=== PATIENT | male | born 1985 | race Two or more races ===

== ENCOUNTER 2024-08-21 16:58 | Inpatient (IN) | payer BC ==
[~2024-08-21] VITALS: Ht 167.6 cm; Wt 101.2 kg
[2024-08-21] MEDS ORDERED: VALB40CA2 PO (17:19)
[2024-08-21] MEDS ORDERED: FLUV50 PO (17:19)
[2024-08-21] MEDS ORDERED: FAMO10TA39 PO (17:19)
[2024-08-21] MEDS ORDERED: DIVA-112 PO (17:19)
[2024-08-21] MEDS ORDERED: OXCA150T28 PO (17:19)
[2024-08-21] MEDS ORDERED: MULT-413 PO (17:19)
[2024-08-21] MEDS ORDERED: LORA0.5T83 PO (17:19)
[2024-08-21] MEDS ORDERED: CLOZ200T24 PO (17:19)
[2024-08-21] MEDS ORDERED: MIRT-89 PO (17:19)
[2024-08-21] MEDS ORDERED: LINA290C PO (17:19)
[2024-08-21 18:12] LABS: PH,URINE DRUG SCREEN 7.0 (5.0-8.0)
[2024-08-21 18:20] LABS: ALCOHOL, URINE DRUG SCREEN NEGATIVE (NEGATIVE); AMPHET/METH SCREEN,URINE NEGATIVE (NEGATIVE); BARBITURATE SCREEN, URINE NEGATIVE (NEGATIVE); CANNABINOID SCREEN,URINE NEGATIVE (NEGATIVE); COCAINE SCREEN,URINE NEGATIVE (NEGATIVE); METHADONE SCREEN, URINE NEGATIVE (NEGATIVE)
[2024-08-21 18:32] LABS: COVID AG,FIA SOURCE NASAL SWAB
[2024-08-21 18:49] LABS: SARS-COV2 (COVID) ANTIGEN,FIA Negative (Negative)
[2024-08-21 21:15] LABS: PLATELET COUNT (AUTO) 261 K/uL (150-450); RED BLOOD CELL COUNT(AUTO) 4.26 MIL/uL (4.50-5.90); RED CELL DISTRIBUTION WIDTH 14.4 % (11.5-14.5); WHITE BLOOD COUNT (AUTO) 4.3 K/uL (4.5-11.0)
[2024-08-21 21:23] LABS: CALCIUM, TOTAL 9.0 mg/dL (8.8-10.5); CREATININE 0.50 mg/dL (0.60-1.30); GLOMERULAR FILTR. RATE CALC > 60 mL/min (>60); GLUCOSE,RANDOM 91 mg/dL (70-110); SODIUM SERUM 139 mmol/L (136-145); UREA NITROGEN, BLOOD 7 mg/dL (7-18)
[2024-08-21] MEDS ORDERED: PROMETHAZINE HCL 25 MG TABLET PO PRN (23:15)
[2024-08-21] MEDS ORDERED: MAGNESIUM HYDROXIDE SUSPENSION 30 ML UDCUP PO PRN (23:15)
[2024-08-21] MEDS ORDERED: MAG HYDROX/ALUMINUM HYD/SIMETH ES 30 ML SUSPENSION UDCUP PO PRN (23:15)
[2024-08-21] MEDS ORDERED: LOPERAMIDE HCL 2 MG CAPSULE PO PRN (23:15)
[2024-08-21] MEDS ORDERED: ACETAMINOPHEN 325 MG TABLET PO PRN (23:15)
[2024-08-22] MEDS: OLANZapine 5 MG RAPDIS TABLET PO PRN (00:54)
[2024-08-22] MEDS: MELATONIN 5 MG TABLET PO PRN (00:54)
[2024-08-22] MEDS ORDERED: LORazepam 2 MG/ML VIAL ONE ×2 (06:34→16:51)
[2024-08-22] MEDS: LORazepam 2 MG/ML VIAL IM ONE ×2 (06:39→18:02)
[2024-08-22 07:16] LABS: CHOL/HDL RATIO 2.1 (4.2-7.3); LDL CHOL (CALC.) 48.0 mg/dL (0-130)
[2024-08-22] MEDS: OLANZapine 5 MG RAPDIS TABLET PO ONE (11:08)
[2024-08-22 12:03] VITALS: O2SAT 98
[2024-08-22 16:34] VITALS: BP 127/89; PULSE 85; RESP 18; TEMP 97.2; O2SAT 99
[2024-08-22] MEDS ORDERED: VALB60CA PO (17:12)
[2024-08-22] MEDS ORDERED: OXCA300T70 PO (17:12)
[2024-08-22] MEDS ORDERED: FAMO20 PO (17:12)
[2024-08-22] MEDS ORDERED: FLUV25TA PO (17:13)
[2024-08-22] MEDS ORDERED: NICOTINE POLACRILEX 2 MG LOZENGE PO PRN (17:45)
[2024-08-22] MEDS: LINACLOTIDE 145 MCG CAPSULE PO SCH (20:21)
[2024-08-22] MEDS: ZOLPIDEM TARTRATE 10 MG TABLET PO PRN (20:21)
[2024-08-22] MEDS ORDERED: MIRTAZAPINE 15 MG TABLET PO SCH (21:00)
[2024-08-22] MEDS ORDERED: DIVALPROEX SODIUM 500 MG ER TABLET PO SCH (21:00)
[2024-08-22] MEDS ORDERED: OLANZapine 5 MG RAPDIS TABLET PO SCH (21:00)
[2024-08-22 23:38] VITALS: RESP 18
[2024-08-23] MEDS ORDERED: BENZOCAINE/MENTHOL [CEPACOL] LOZENGE PO PRN (08:15)
[2024-08-23] MEDS ORDERED: ALBUTEROL SULFATE HFA 90 MCG/PUFF 8 GM INHALER IH PRN (08:15)
[2024-08-23] MEDS ORDERED: LOPERAMIDE HCL 2 MG CAPSULE PO PRN (08:15)
[2024-08-23] MEDS ORDERED: DOCUSATE SODIUM 100 MG CAPSULE PO PRN (08:15)
[2024-08-23] MEDS ORDERED: PETROLATUM,WHITE 28 GM JELLY TP PRN (08:15)
[2024-08-23] MEDS ORDERED: ONDANSETRON 4 MG TABLET PO PRN (08:15)
[2024-08-23] MEDS ORDERED: BACITRACIN 28 GM OINTMENT TP PRN (08:15)
[2024-08-23 08:31] VITALS: BP 103/60; PULSE 95; RESP 18; TEMP 97.2; O2SAT 99
[2024-08-23] MEDS: MULTIVITAMINS WITH MINERALS, THERAPEUTIC TABLET PO SCH (08:54)
[2024-08-23] MEDS: FAMOTIDINE 20 MG TABLET PO SCH (08:55)
[2024-08-23] MEDS: DIVALPROEX SODIUM 250 MG DR TABLET PO SCH (13:17)
[2024-08-23] MEDS: MAG HYDROX/ALUMINUM HYD/SIMETH ES 30 ML SUSPENSION UDCUP PO PRN (19:11)
[2024-08-23 20:09] VITALS: BP 133/85; PULSE 72; RESP 18; TEMP 97.5; O2SAT 98
[2024-08-23] MEDS: MIRTAZAPINE 15 MG TABLET PO SCH (20:11)
[2024-08-24 08:21] VITALS: BP 117/76; PULSE 83; RESP 17; TEMP 97.7; O2SAT 100
[2024-08-24] MEDS: TUBERCULIN, PURIFIED PROTEIN DERIVATIVE 5 TU/0.1 ML SYRINGE ID ONE (16:46)
[2024-08-24 20:49] VITALS: BP 118/78; PULSE 86; RESP 17; TEMP 98.3; O2SAT 97
[2024-08-25 08:33] VITALS: BP 116/63; PULSE 89; RESP 17; TEMP 97.4; O2SAT 99
[2024-08-25 08:54] LABS: APPEARANCE,URINE CLEAR (CLEAR); GLUCOSE, URINE (UA) NEGATIVE (NEGATIVE); LEUKOCYTE ESTERASE ,URINE NEGATIVE (NEGATIVE); NITRATE,URINE NEGATIVE (NEGATIVE); OCCULT BLOOD,URINE NEGATIVE (NEGATIVE); PH,URINE DRUG SCREEN 7.0 (5.0-8.0); SPECIFIC GRAVITIY, URINE 1.022 (1.003-1.030)
[2024-08-25 09:23] LABS: ALCOHOL, URINE DRUG SCREEN NEGATIVE (NEGATIVE); AMPHET/METH SCREEN,URINE NEGATIVE (NEGATIVE); BARBITURATE SCREEN, URINE NEGATIVE (NEGATIVE); CANNABINOID SCREEN,URINE NEGATIVE (NEGATIVE); COCAINE SCREEN,URINE NEGATIVE (NEGATIVE); METHADONE SCREEN, URINE NEGATIVE (NEGATIVE)
[2024-08-25 20:25] VITALS: BP 126/84; PULSE 97; RESP 17; TEMP 97.5; O2SAT 98
[2024-08-26 08:13] VITALS: BP 124/84; PULSE 86; RESP 18; TEMP 97.5; O2SAT 97
[2024-08-26 21:35] VITALS: RESP 18
[2024-08-26] MEDS: ACETAMINOPHEN 325 MG TABLET PO PRN (21:35)
[2024-08-27 08:03] VITALS: BP 121/83; PULSE 98; RESP 18; TEMP 97.8; O2SAT 97
[2024-08-27 20:09] VITALS: BP 136/87; PULSE 91; RESP 18; TEMP 97.3; O2SAT 99
[2024-08-27] MEDS: IBUPROFEN 600 MG TABLET PO PRN (23:00)
[2024-08-28 08:34] LABS: PLATELET COUNT (AUTO) 261 K/uL (150-450); RED BLOOD CELL COUNT(AUTO) 4.65 MIL/uL (4.50-5.90); RED CELL DISTRIBUTION WIDTH 14.6 % (11.5-14.5); WHITE BLOOD COUNT (AUTO) 4.7 K/uL (4.5-11.0)
[2024-08-28 08:52] VITALS: BP 109/60; PULSE 73; RESP 17; TEMP 97.9; O2SAT 98
[2024-08-28 20:38] VITALS: BP 136/87; PULSE 88; RESP 18; TEMP 97.4; O2SAT 99
[2024-08-29 08:19] VITALS: BP 100/60; PULSE 85; RESP 17; TEMP 97.4; O2SAT 98
[2024-08-29] MEDS ORDERED: LORazepam 2 MG/ML VIAL ONE (16:54)
[2024-08-29] MEDS: LORazepam 2 MG/ML VIAL IM ONE (17:02)
[2024-08-29 20:10] VITALS: BP 132/88; PULSE 79; RESP 18; TEMP 97.5; O2SAT 100
[2024-08-29] MEDS: MAGNESIUM HYDROXIDE SUSPENSION 30 ML UDCUP PO PRN (21:31)
[2024-08-30 08:20] VITALS: BP 121/67; PULSE 81; RESP 17; TEMP 97.2; O2SAT 98
[2024-08-30 17:30] VITALS: BP 136/77; PULSE 77; RESP 17; TEMP 97.9; O2SAT 98
[2024-08-30 20:24] VITALS: RESP 17
[2024-08-31] MEDS ORDERED: LORazepam 2 MG/ML VIAL ONE (03:16)
[2024-08-31] MEDS: LORazepam 2 MG/ML VIAL IM ONE (03:42)
[2024-08-31 04:28] VITALS: BP 122/76; PULSE 95; RESP 16; TEMP 97.1; O2SAT 99
[2024-08-31 08:09] VITALS: BP 134/89; PULSE 96; RESP 18; TEMP 97.7; O2SAT 96
[2024-08-31 20:13] VITALS: BP 117/85; PULSE 100; RESP 18; TEMP 97.3; O2SAT 100
[2024-09-01 08:40] VITALS: BP 127/87; PULSE 100; RESP 19; TEMP 97.5; O2SAT 100
[2024-09-01] MEDS: OMEPRAZOLE 20 MG CAPSULE PO PRN (17:21)
[2024-09-01 20:10] VITALS: BP 121/65; PULSE 94; RESP 18; TEMP 97.6; O2SAT 99
[2024-09-01 21:35] VITALS: BP 146/96; PULSE 105; RESP 19; TEMP 97.5; O2SAT 98
[2024-09-02] VITALS (7 sets, daily range): BP systolic 116–130; BP diastolic 62–63; PULSE 85–103; RESP 16–18; TEMP 98–98.1; O2SAT 99–100
[2024-09-02 08:38] LABS: ASPARTATE AMINOTRANSFERASE 35 U/L (15-37); CALCIUM, TOTAL 7.9 mg/dL (8.8-10.5); CREATININE 0.56 mg/dL (0.60-1.30); GLOMERULAR FILTR. RATE CALC > 60 mL/min (>60); GLUCOSE,RANDOM 121 mg/dL (70-110); SODIUM SERUM 126 mmol/L (136-145); TOTAL PROTEIN, SERUM 6.2 g/dL (6.4-8.2); UREA NITROGEN, BLOOD 7 mg/dL (7-18)
[2024-09-03] VITALS (8 sets, daily range): BP systolic 100–130; BP diastolic 65–85; PULSE 75–100; RESP 17–20; TEMP 97.7–98; O2SAT 99–100
[2024-09-03] MEDS ORDERED: LORazepam 2 MG/ML VIAL ONE (11:09)
[2024-09-03] MEDS: LORazepam 2 MG/ML VIAL IM ONE (12:18)
[2024-09-04 08:25] VITALS: BP 104/66; PULSE 99; RESP 18; TEMP 97.8; O2SAT 97
[2024-09-04 08:57] LABS: PLATELET COUNT (AUTO) 253 K/uL (150-450); RED BLOOD CELL COUNT(AUTO) 3.71 MIL/uL (4.50-5.90); RED CELL DISTRIBUTION WIDTH 15.5 % (11.5-14.5); WHITE BLOOD COUNT (AUTO) 6.3 K/uL (4.5-11.0)
[2024-09-04] MEDS: SODIUM CHLORIDE 1 GM TABLET PO SCH (09:33)
[2024-09-04 13:03] VITALS: BP 115/65; RESP 17; O2SAT 98
[2024-09-04 20:24] VITALS: BP 120/72; PULSE 91; RESP 18; TEMP 98; O2SAT 94
[2024-09-05 08:16] VITALS: BP 127/89; PULSE 95; RESP 18; TEMP 98; O2SAT 100
[2024-09-05 20:01] VITALS: BP 126/76; PULSE 95; RESP 17; TEMP 97.6; O2SAT 99
[2024-09-06 08:04] VITALS: BP 115/66; PULSE 83; RESP 17; TEMP 97.4; O2SAT 99
[2024-09-06 09:01] LABS: ASPARTATE AMINOTRANSFERASE 20 U/L (15-37); CALCIUM, TOTAL 8.9 mg/dL (8.8-10.5); CREATININE 0.58 mg/dL (0.60-1.30); GLOMERULAR FILTR. RATE CALC > 60 mL/min (>60); GLUCOSE,RANDOM 106 mg/dL (70-110); SODIUM SERUM 135 mmol/L (136-145); TOTAL PROTEIN, SERUM 6.6 g/dL (6.4-8.2); UREA NITROGEN, BLOOD 5 mg/dL (7-18)
[2024-09-06 20:05] VITALS: BP 138/84; PULSE 80; RESP 18; TEMP 97.3; O2SAT 100
[2024-09-07 08:02] VITALS: BP 135/92; PULSE 100; RESP 18; TEMP 97.9; O2SAT 97
[2024-09-07 20:07] VITALS: RESP 17
[2024-09-18] MEDS ORDERED: PALIPERIDONE PALMITATE 234 MG/1.5 ML SYRINGE IM SCH (09:00)
== END 2024-09-07 20:39 | disposition short-term general hospital (02) | DRG 885 ==
LOC: EMS 17:35 → B2S 08-22 15:05 → B3A 08-22 17:14
PROVIDERS: ADMIT Psychiatry & Neurology Psychiatry; ATTEND Psychiatry & Neurology Psychiatry
PROC: GZHZZZZ Group Psychotherapy (ICD-10-PCS; principal; 2024-08-23)
PROC: GZ52ZZZ Individual Psychotherapy, Cognitive (ICD-10-PCS; 2024-08-25)
DX: F20.0 Paranoid schizophrenia (principal); E87.1 Hypo-osmolality and hyponatremia; G40.909 Epilepsy, unspecified, not intractable, without status epilepticus; Z20.822 Contact with and (suspected) exposure to COVID-19; G47.00 Insomnia, unspecified; F32.A Depression, unspecified; K21.9 Gastro-esophageal reflux disease without esophagitis; K59.00 Constipation, unspecified; Z87.891 Personal history of nicotine dependence; Z79.899 Other long term (current) drug therapy
CPT/HCPCS: 80048; 80053; 80061; 80164; 80307; 81003; 82330; 83036; 84439; 84443; 85025; 86592; 87081; 99285; G0480; J1200; J1630; J2060

== ENCOUNTER 2024-09-07 17:48 | Inpatient (IN) | payer BC ==
[~2024-09-07] VITALS: Ht 177.8 cm; Wt 96.5 kg
[~2024-09-07 17:48] MED LIST: CLOZ200T24 PO; DIVA-112 PO; FAMO20 PO; FLUV25TA PO; LINA290C PO; LORA0.5T83 PO; MIRT-89 PO; MULT-413 PO; OXCA300T70 PO; VALB60CA PO
[2024-09-07] MEDS: SODIUM CHLORIDE 0.9% 1,000 ML IV ONE (18:49)
[2024-09-07 18:50] LABS: PLATELET COUNT (AUTO) 338 K/uL (150-450); RED BLOOD CELL COUNT(AUTO) 3.48 MIL/uL (4.50-5.90); RED CELL DISTRIBUTION WIDTH 15.2 % (11.5-14.5); WHITE BLOOD COUNT (AUTO) 11.4 K/uL (4.5-11.0)
[2024-09-07 19:06] LABS: CALCIUM, TOTAL 8.0 mg/dL (8.8-10.5); CREATININE 0.40 mg/dL (0.60-1.30); GLOMERULAR FILTR. RATE CALC > 60 mL/min (>60); GLUCOSE,RANDOM 100 mg/dL (70-110); UREA NITROGEN, BLOOD 4 mg/dL (7-18)
[2024-09-07 19:09] LABS: SODIUM SERUM 108 mmol/L (136-145)
[2024-09-07 19:10] LABS: ALCOHOL, BLOOD (SERUM) < 3 mg/dL (0-10)
[2024-09-07] MEDS: ACETAMINOPHEN 1000 MG/ISO-OSM 100 ML IV ONE (19:10)
[2024-09-07 19:14] LABS: TROPONIN I-HIGH SENSITIVITY 55 ng/L (<76)
[2024-09-07 19:16] LABS: LACTIC ACID 1.8 mmol/L (0.4-2.0)
[2024-09-07 19:21] LABS: APPEARANCE,URINE CLEAR (CLEAR); GLUCOSE, URINE (UA) NEGATIVE (NEGATIVE); LEUKOCYTE ESTERASE ,URINE NEGATIVE (NEGATIVE); NITRATE,URINE NEGATIVE (NEGATIVE); OCCULT BLOOD,URINE LARGE (NEGATIVE); PH,URINE DRUG SCREEN 7.5 (5.0-8.0); SPECIFIC GRAVITIY, URINE 1.008 (1.003-1.030)
[2024-09-07 19:24] LABS: CREATININE,URINE RANDOM 21.2 mg/dL (30.0-125.0); UREA NITROGEN,URINE RANDOM 128.0 mg/dL (350-1000)
[2024-09-07 19:25] LABS: ASPARTATE AMINOTRANSFERASE 96 U/L (15-37); CREATINE KINASE, TOTAL ONLY 9495 U/L (39-308); TOTAL PROTEIN, SERUM 6.4 g/dL (6.4-8.2)
[2024-09-07 19:27] LABS: ALCOHOL, URINE DRUG SCREEN NEGATIVE (NEGATIVE); AMPHET/METH SCREEN,URINE NEGATIVE (NEGATIVE); BARBITURATE SCREEN, URINE NEGATIVE (NEGATIVE); CANNABINOID SCREEN,URINE NEGATIVE (NEGATIVE); COCAINE SCREEN,URINE NEGATIVE (NEGATIVE); METHADONE SCREEN, URINE NEGATIVE (NEGATIVE)
[2024-09-07 19:47] LABS: PHOSPHORUS 2.8 mg/dL (2.5-4.9)
[2024-09-07] MEDS: LIDOCAINE 2% 6 ML JELLY TP ONE (20:13)
[2024-09-07] MEDS: SODIUM CHLORIDE 3% 500 ML IV ONE (20:13)
[2024-09-07 21:05] LABS: CALCIUM, TOTAL 8.2 mg/dL (8.8-10.5); CREATININE 0.49 mg/dL (0.60-1.30); GLOMERULAR FILTR. RATE CALC > 60 mL/min (>60); GLUCOSE,RANDOM 98 mg/dL (70-110); UREA NITROGEN, BLOOD 4 mg/dL (7-18)
[2024-09-07 21:07] LABS: SODIUM SERUM 114 mmol/L (136-145)
[2024-09-07] MEDS ORDERED: HYDROCODONE/ACETAMINOPHEN 5-325 MG TABLET PO PRN (22:00)
[2024-09-07] MEDS ORDERED: ALBUTEROL SULFATE 2.5 MG/0.5 ML NEB SOLUTION NEB PRN (22:00)
[2024-09-07] MEDS ORDERED: MAGNESIUM HYDROXIDE SUSPENSION 30 ML UDCUP PO PRN (22:00)
[2024-09-07] MEDS ORDERED: IPRATROPIUM BROMIDE 0.5 MG/2.5 ML NEB SOLUTION NEB PRN (22:00)
[2024-09-07] MEDS ORDERED: BISACODYL 10 MG RECTAL RECTAL SUPPOSITORY PR PRN (22:00)
[2024-09-07] MEDS ORDERED: ONDANSETRON HCL 4 MG/2 ML VIAL IVP PRN (22:00)
[2024-09-07] MEDS: DESMOPRESSIN ACETATE 4 MCG/ML VIAL IVP ONE (22:05)
[2024-09-07] MEDS: MAGNESIUM SULFATE 2 GM/WATER 50 ML IV ONE (22:05)
[2024-09-07 22:14] LABS: % IRON SATURATION 14.1 % (30-44); IRON, SERUM 39.0 mcg/dL (50-175)
[2024-09-07 23:32] LABS: CALCIUM, TOTAL 8.3 mg/dL (8.8-10.5); CREATININE 0.50 mg/dL (0.60-1.30); GLOMERULAR FILTR. RATE CALC > 60 mL/min (>60); GLUCOSE,RANDOM 80 mg/dL (70-110); UREA NITROGEN, BLOOD 3 mg/dL (7-18)
[2024-09-07 23:34] LABS: SODIUM SERUM 117 mmol/L (136-145)
[2024-09-07] MEDS ORDERED: SODIUM CHLORIDE 0.9% 250 ML IV ONE (23:45)
[2024-09-07] MEDS: CefTRIAXone 1 GM/DEXTROSE 50 ML IV SCH (23:55)
[2024-09-07] MEDS: HEPARIN SODIUM,PORCINE 5,000 UNITS/ML VIAL SQ SCH (23:56)
[2024-09-07] MEDS: DEXTROSE 5%-WATER 1,000 ML IV SCH (23:56)
[2024-09-07] MEDS: LACTULOSE 20 GM/30 ML SOLUTION UDCUP PO ONE (23:56)
[2024-09-08] VITALS: BP 128/78; PULSE 86; RESP 20; TEMP 98.1; O2SAT 97
[2024-09-08 01:30] LABS: CALCIUM, TOTAL 8.1 mg/dL (8.8-10.5); CREATININE 0.46 mg/dL (0.60-1.30); GLOMERULAR FILTR. RATE CALC > 60 mL/min (>60); GLUCOSE,RANDOM 93 mg/dL (70-110); UREA NITROGEN, BLOOD 4 mg/dL (7-18)
[2024-09-08 01:34] LABS: SODIUM SERUM 117 mmol/L (136-145)
[2024-09-08] MEDS: ZOLPIDEM TARTRATE 5 MG TABLET PO PRN (01:43)
[2024-09-08] MEDS: ACETAMINOPHEN 325 MG TABLET PO PRN (01:44)
[2024-09-08 04:00] VITALS: BP 130/83; PULSE 91; RESP 37; TEMP 98.4; O2SAT 97
[2024-09-08] MEDS: MORPHINE SULFATE 2 MG/ML SYRINGE IVP PRN (04:25)
[2024-09-08 05:41] LABS: PLATELET COUNT (AUTO) 381 K/uL (150-450); RED BLOOD CELL COUNT(AUTO) 3.80 MIL/uL (4.50-5.90); RED CELL DISTRIBUTION WIDTH 15.2 % (11.5-14.5); WHITE BLOOD COUNT (AUTO) 7.5 K/uL (4.5-11.0)
[2024-09-08 05:48] LABS: CALCIUM, TOTAL 8.4 mg/dL (8.8-10.5); CREATININE 0.57 mg/dL (0.60-1.30); GLOMERULAR FILTR. RATE CALC > 60 mL/min (>60); GLUCOSE,RANDOM 80 mg/dL (70-110); UREA NITROGEN, BLOOD 4 mg/dL (7-18)
[2024-09-08 05:55] LABS: SODIUM SERUM 117 mmol/L (136-145)
[2024-09-08 06:16] LABS: RBC MORPHOLOGY COMMENT ABNORMAL RBC MORPH
[2024-09-08 08:00] VITALS: BP 137/79; PULSE 90; PULSE 99; RESP 16; TEMP 98.5; O2SAT 98
[2024-09-08] MEDS: DOCUSATE SODIUM 100 MG CAPSULE PO SCH (08:57)
[2024-09-08] MEDS: PANTOPRAZOLE SODIUM 40 MG/VIAL IVP SCH (08:57)
[2024-09-08] MEDS: LORazepam 2 MG/ML VIAL IVP ONE ×2 (10:23→13:04)
[2024-09-08 10:33] LABS: CALCIUM, TOTAL 8.5 mg/dL (8.8-10.5); CREATININE 0.49 mg/dL (0.60-1.30); GLOMERULAR FILTR. RATE CALC > 60 mL/min (>60); GLUCOSE,RANDOM 88 mg/dL (70-110); UREA NITROGEN, BLOOD 4 mg/dL (7-18)
[2024-09-08 10:35] LABS: SODIUM SERUM 115 mmol/L (136-145)
[2024-09-08 12:00] VITALS: BP 118/63; PULSE 110; PULSE 90; PULSE 99; RESP 20; TEMP 98.8; O2SAT 98
[2024-09-08 14:14] LABS: CALCIUM, TOTAL 9.0 mg/dL (8.8-10.5); CREATININE 0.58 mg/dL (0.60-1.30); GLOMERULAR FILTR. RATE CALC > 60 mL/min (>60); GLUCOSE,RANDOM 102 mg/dL (70-110); UREA NITROGEN, BLOOD 5 mg/dL (7-18)
[2024-09-08 14:20] LABS: SODIUM SERUM 118 mmol/L (136-145)
[2024-09-08] MEDS: DESMOPRESSIN ACETATE 4 MCG/ML VIAL IVP ONE (15:17)
[2024-09-08 16:00] VITALS: BP 146/108; PULSE 111; PULSE 114; RESP 23; TEMP 99.3; O2SAT 100
[2024-09-08 18:52] LABS: CALCIUM, TOTAL 8.9 mg/dL (8.8-10.5); CREATININE 0.56 mg/dL (0.60-1.30); GLOMERULAR FILTR. RATE CALC > 60 mL/min (>60); GLUCOSE,RANDOM 115 mg/dL (70-110); UREA NITROGEN, BLOOD 5 mg/dL (7-18)
[2024-09-08 18:55] LABS: SODIUM SERUM 121 mmol/L (136-145)
[2024-09-08 20:00] VITALS: BP 141/89; PULSE 92; RESP 20; TEMP 98.9; O2SAT 100
[2024-09-08] MEDS: MIRTAZAPINE 15 MG TABLET PO SCH (20:21)
[2024-09-08 22:22] LABS: CALCIUM, TOTAL 8.4 mg/dL (8.8-10.5); CREATININE 0.51 mg/dL (0.60-1.30); GLOMERULAR FILTR. RATE CALC > 60 mL/min (>60); GLUCOSE,RANDOM 93 mg/dL (70-110); UREA NITROGEN, BLOOD 4 mg/dL (7-18)
[2024-09-08 22:24] LABS: SODIUM SERUM 123 mmol/L (136-145)
[2024-09-08] MEDS: DEXTROSE 5%-WATER 1,000 ML IV STA (23:11)
[2024-09-09] VITALS (10 sets, daily range): BP systolic 96–114; BP diastolic 58–76; PULSE 79–101; RESP 11–23; TEMP 98.3–98.8; O2SAT 97–100
[2024-09-09 02:26] LABS: PLATELET COUNT (AUTO) 386 K/uL (150-450); RED BLOOD CELL COUNT(AUTO) 3.92 MIL/uL (4.50-5.90); RED CELL DISTRIBUTION WIDTH 15.2 % (11.5-14.5); WHITE BLOOD COUNT (AUTO) 5.8 K/uL (4.5-11.0)
[2024-09-09 02:33] LABS: CALCIUM, TOTAL 8.5 mg/dL (8.8-10.5); CREATININE 0.47 mg/dL (0.60-1.30); GLOMERULAR FILTR. RATE CALC > 60 mL/min (>60); GLUCOSE,RANDOM 107 mg/dL (70-110); UREA NITROGEN, BLOOD 3 mg/dL (7-18)
[2024-09-09 02:38] LABS: SODIUM SERUM 123 mmol/L (136-145)
[2024-09-09] MEDS: POTASSIUM CHL 10 MEQ/WATER 50 ML IV SCH (03:27)
[2024-09-09] MEDS: DESMOPRESSIN ACETATE 4 MCG/ML VIAL IVP ONE ×3 (03:27→08:27)
[2024-09-09 07:36] LABS: CALCIUM, TOTAL 8.3 mg/dL (8.8-10.5); CREATININE 0.43 mg/dL (0.60-1.30); GLOMERULAR FILTR. RATE CALC > 60 mL/min (>60); GLUCOSE,RANDOM 105 mg/dL (70-110); UREA NITROGEN, BLOOD 3 mg/dL (7-18)
[2024-09-09 07:47] LABS: SODIUM SERUM 124 mmol/L (136-145)
[2024-09-09] MEDS: DEXTROSE 5%-WATER 1,000 ML IV SCH (08:29)
[2024-09-09 12:48] LABS: CALCIUM, TOTAL 8.1 mg/dL (8.8-10.5); CREATININE 0.43 mg/dL (0.60-1.30); GLOMERULAR FILTR. RATE CALC > 60 mL/min (>60); GLUCOSE,RANDOM 98 mg/dL (70-110); UREA NITROGEN, BLOOD 4 mg/dL (7-18)
[2024-09-09 12:52] LABS: SODIUM SERUM 121 mmol/L (136-145)
[2024-09-09 15:33] LABS: CALCIUM, TOTAL 8.3 mg/dL (8.8-10.5); CREATININE 0.46 mg/dL (0.60-1.30); GLOMERULAR FILTR. RATE CALC > 60 mL/min (>60); GLUCOSE,RANDOM 129 mg/dL (70-110); UREA NITROGEN, BLOOD 4 mg/dL (7-18)
[2024-09-09 16:01] LABS: SODIUM SERUM 122 mmol/L (136-145)
[2024-09-09 19:36] LABS: CALCIUM, TOTAL 8.7 mg/dL (8.8-10.5); CREATININE 0.55 mg/dL (0.60-1.30); GLOMERULAR FILTR. RATE CALC > 60 mL/min (>60); GLUCOSE,RANDOM 125 mg/dL (70-110); SODIUM SERUM 125 mmol/L (136-145); UREA NITROGEN, BLOOD 4 mg/dL (7-18)
[2024-09-10] VITALS (7 sets, daily range): BP systolic 96–132; BP diastolic 62–85; PULSE 79–99; RESP 17–19; TEMP 97.9–98.7; O2SAT 98–100
[2024-09-10 09:56] LABS: CALCIUM, TOTAL 8.7 mg/dL (8.8-10.5); CREATININE 0.41 mg/dL (0.60-1.30); GLOMERULAR FILTR. RATE CALC > 60 mL/min (>60); GLUCOSE,RANDOM 96 mg/dL (70-110); SODIUM SERUM 133 mmol/L (136-145); UREA NITROGEN, BLOOD 6 mg/dL (7-18)
[2024-09-10 10:01] LABS: PHOSPHORUS 4.2 mg/dL (2.5-4.9)
[2024-09-10] MEDS ORDERED: SODIUM CHLORIDE 0.9% 250 ML IV ONE (22:11)
[2024-09-10] MEDS: GuaiFENesin/D-METHORPHAN [SUGAR-FREE] 200-20MG/10 ML SYRUP UDCUP PO PRN (22:29)
[2024-09-11 00:20] VITALS: BP 118/70; PULSE 83; RESP 17; TEMP 98.4; O2SAT 97
[2024-09-11 04:25] VITALS: BP 131/73; PULSE 104; RESP 19; TEMP 98.6; O2SAT 98
[2024-09-11 06:56] LABS: PLATELET COUNT (AUTO) 413 K/uL (150-450); RED BLOOD CELL COUNT(AUTO) 3.87 MIL/uL (4.50-5.90); RED CELL DISTRIBUTION WIDTH 15.7 % (11.5-14.5); WHITE BLOOD COUNT (AUTO) 6.9 K/uL (4.5-11.0)
[2024-09-11 07:08] LABS: CALCIUM, TOTAL 8.4 mg/dL (8.8-10.5); CREATININE 0.53 mg/dL (0.60-1.30); GLOMERULAR FILTR. RATE CALC > 60 mL/min (>60); GLUCOSE,RANDOM 87 mg/dL (70-110); SODIUM SERUM 137 mmol/L (136-145); UREA NITROGEN, BLOOD 11 mg/dL (7-18)
[2024-09-11 07:58] VITALS: BP 125/72; PULSE 101; RESP 18; TEMP 98.4; O2SAT 97
[2024-09-11 11:33] VITALS: BP 125/73; PULSE 74; RESP 18; TEMP 98.1; O2SAT 96
== END 2024-09-11 12:45 | disposition home or self-care (01) | DRG 441 ==
LOC: EMS 17:48 → EDH 20:04 → ICU 22:50 → 5N 09-10 05:15
PROVIDERS: ADMIT Hospitalist; ATTEND Hospitalist
DX: K76.82 Hepatic encephalopathy (principal); G92.8 Other toxic encephalopathy; J96.01 Acute respiratory failure with hypoxia; E87.1 Hypo-osmolality and hyponatremia; R65.10 Systemic inflammatory response syndrome (SIRS) of non-infectious origin without acute organ dysfunction; F20.0 Paranoid schizophrenia; D64.9 Anemia, unspecified; D72.829 Elevated white blood cell count, unspecified; E83.42 Hypomagnesemia; G40.909 Epilepsy, unspecified, not intractable, without status epilepticus; R63.1 Polydipsia; Z72.0 Tobacco use; F32.A Depression, unspecified; Z79.899 Other long term (current) drug therapy; Z91.51 Personal history of suicidal behavior
CPT/HCPCS: 70450; 71045; 80048; 80076; 80307; 81001; 82140; 82533; 82550; 82570; 83540; 83550; 83605; 83735; 83880; 83930; 83935; 84100; 84300; 84443; 84484; 84540; 85025; 87040; 87081; 93005; 96361; 96365; 96366; 96375; 99291; G0480; J0131; J0696; J1630; J1644; J2060; J2270; J2470; J2597; J3475; J3480; J7030; J7050; J7060; 36415-L1; 36415-TC